=== PATIENT | female | born 1960 | race Caucasian/White ===

== ENCOUNTER 2023-10-11 01:14 | Emergency (ER) | payer OTHER, BC ==
[~2023-10-11] VITALS: Ht 149.9 cm; Wt 78.6 kg
[~2023-10-11 01:14] MED LIST: DILT180T11 PO; LEVO50TA78 PO; LOP25T PO; LORA0.5T PO; METF1000 PO; [UNRECOGNIZED DRUG - CODE] PO
[2023-10-11] MEDS ORDERED: normal saline 1000ml 1,000 ML IV ONE (01:30)
[2023-10-11] MEDS ORDERED: bisacodyl 5mg tablet.DR PO ONE (01:30)
[2023-10-11 01:49] LABS: BASOPHILS % (AUTO) 0.1 % (0-1); EOSINOPHILS % (AUTO) 0.4 % (0-6); HEMATOCRIT 42.9 % (35.0-45.0); HEMOGLOBIN 14.2 g/dl (12.0-16.0); LYMPHOCYTES # (AUTO) 0.7 X10'3 (1.1-4.8); MEAN CORPUSCULAR HEMOGLOBIN 28.5 PG (27.0-31.0); MEAN CORPUSCULAR VOLUME 86.3 FL (78-98); MONOCYTES # (AUTO) 0.4 X10'3 (0-0.9); NEUTROPHILS # (AUTO) 5.5 X10'3 (1.8-7.7); NEUTROPHILS % (AUTO) 82.5 % (42-75); PLATELET COUNT 119 X10'3 (140-440); RED BLOOD COUNT 4.97 X10'6 (4.20-5.60); RED CELL DISTRIBUTION WIDTH 13.4 % (11.5-14.5); WHITE BLOOD COUNT 6.7 X10'3 (4.5-11.0)
[2023-10-11 01:53] LABS: INR 0.9 INR; PROTHROMBIN TIME 10.2 SECONDS (9.0-12.0)
[2023-10-11 01:56] LABS: ALANINE AMINOTRANSFERASE 14 U/L (12-78); ALBUMIN 3.6 G/DL (3.4-5.0); ALKALINE PHOSPHATASE 68 IU/L (46-116); ANION GAP 10 (8-16); ASPARTATE AMINO TRANSFERASE 11 U/L (10-37); BILIRUBIN,TOTAL 0.5 MG/DL (0.1-1.0); BLOOD UREA NITROGEN 9 MG/DL (7-18); BUN/CREATININE RATIO 11.7 (10.0-20.0); CALCIUM 8.6 MG/DL (8.5-10.1); CHLORIDE 100 MMOL/L (99-107); CREATININE 0.77 MG/DL (0.40-0.90); GLUCOSE 189 MG/DL (70-104); POTASSIUM 3.4 MMOL/L (3.5-5.1); SODIUM 134 MMOL/L (135-145); TOTAL CARBON DIOXIDE 24.5 MMOL/L (24-32); TOTAL PROTEIN 7.1 G/DL (6.4-8.2); eCRCL 52 ML/MIN; eGFR 76 ML/MIN
[2023-10-11 02:05] LABS: MAGNESIUM 2.1 MG/DL (1.5-2.4); PRO BRAIN NATRIURETIC PEPTIDE 66 PG/ML (0-125)
[2023-10-11 02:09] LABS: BILIRUBIN,URINE NEGATIVE (Neg); CLARITY,URINE CLOUDY (Clear); COLOR,URINE STRAW (Yellow); GLUCOSE, URINE >=1000 mg/dl (Neg); LEUKOCYTE ESTERASE ,URINE SMALL (Neg); NITRITES, URINE NEGATIVE (Neg); OCCULT BLOOD,URINE TRACE-INTACT (Neg); PROTEIN,URINE NEGATIVE (Neg); UROBILINOGEN,URINE 0.2 E.U/dL (0.2-1.0)
[2023-10-11 02:13] LABS: UA COLLECTION TYPE CLN CATCH MIDSTREAM
[2023-10-11 02:17] LABS: SQUAMOUS EPITHELIAL CELL,UR MANY /LPF (FEW)
[2023-10-11 02:18] LABS: RBC,URINE 0-2 /HPF (0-2); WBC,URINE 20-30 /HPF (0-4)
[2023-10-11 02:19] LABS: BACTERIA,URINE 1+ /HPF (Neg); KETONES,URINE >80 mg/dl (Neg)
[2023-10-11 02:20] LABS: WBC CLUMPS,URINE MODERATE /HPF (NEGATIVE)
[2023-10-11] MEDS ORDERED: CefTRIAXone/D5W-Rocephin 1gm 50 ML IV ONE (02:50)
[2023-10-11] MEDS ORDERED: ONDA8TAB13 PO (05:04)
--- NOTE | 2023-10-11 05:06 | NUR ---
iv dc'd pt being discharged dressing applied
[2023-10-11 05:07] VITALS: BP 118/78; PULSE 101; RESP 18; TEMP 98.6; O2SAT 98
[2023-10-11] MEDS ORDERED: CEPH250T PO (05:15)
== END 2023-10-11 05:25 | disposition home or self-care (01) ==
LOC: ER 01:15
DX: R55 Syncope and collapse (principal); Z20.822 Contact with and (suspected) exposure to COVID-19; N39.0 Urinary tract infection, site not specified; K59.00 Constipation, unspecified; R11.10 Vomiting, unspecified; E11.9 Type 2 diabetes mellitus without complications; E03.9 Hypothyroidism, unspecified; Z79.899 Other long term (current) drug therapy
CPT/HCPCS: 36415; 80053; 81001; 83735; 83880; 84145; 84484; 85025; 85610; 87502; 87503; 87811; 93005; 96361; 96365; 96366; 99284; J0696; J7030